=== PATIENT | male | born 1965 | race Caucasian/White ===

== ENCOUNTER 2021-09-28 09:07 | Inpatient (IN) ==
[2021-09-28 10:14] LABS: Basophils % 0.2 %; Hematocrit 53.4 % (37.5-50.1); Hemoglobin 17.6 g/dL (12.9-16.9); Immature Granulocytes % 0.6 % (0-4); Lymphocytes # 0.7 K/mcL (0.6-4.6); Lymphocytes % 8.2 %; Mean Corpuscular Hemoglobin 26.6 pg (28.0-33.3); Mean Corpuscular Volume 80.8 fL (83.0-100.0); Mean Platelet Volume 10.5 fL (9.4-12.4); Monocytes # 0.3 K/mcL (0.0-1.3); Monocytes % 3.2 %; Neutrophils # 7.7 K/mcL (1.6-8.9); Platelet Count 158 K/mcL (140-400); Red Blood Count 6.61 M/mcL (4.19-5.50); Segmented Neutrophils % 87.8 %; White Blood Count 8.8 K/mcL (4.3-11.1)
[2021-09-28 10:16] LABS: VBG HCO3 26 mEq/L (21-27); VBG PCO2 37 mmHg (41-51); VBG PH 7.45 pH Units (7.32-7.42); VBG PO2 78 mmHg (25-50)
[2021-09-28 10:22] LABS: INR 1.2; Prothrombin Time 13.7 Seconds (9.4-12.1)
[2021-09-28 10:25] LABS: Activated Partial Thrombo Time 30.6 Seconds (26.0-36.0)
[2021-09-28 10:40] LABS: Alanine Aminotransferase 49 Units/L (7-52); Albumin 3.8 g/dL (3.5-5.7); Albumin/Globulin Ratio 1.2 (1.1-2.2); Alkaline Phosphatase 66 Units/L (34-104); Aspartate Amino Transferase 55 Units/L (13-39); Bilirubin,Direct 0.2 mg/dL (0.0-0.2); Bilirubin,Indirect 0.5 mg/dL (0.0-1.0); Bilirubin,Total 0.7 mg/dL (0.3-1.0); Blood Urea Nitrogen 26 mg/dL (6-20); Calcium 8.9 mg/dL (8.6-10.3); Carbon Dioxide 25 mEq/L (23-29); Chloride 102 mEq/L (98-107); Globulin 3.2 g/dL (2.4-3.5); Glucose 168 mg/dL (70-105); Lipase 108 Units/L (11-82); Magnesium 1.6 mg/dL (1.6-2.6); Osmolality,Calculated 293 (280-300); Sodium 137 mEq/L (136-145); Troponin I 0.03 ng/mL (< 0.04)
[2021-09-28] MEDS ORDERED: Isovue-370 500 ML BOTTLE IVP ONE (11:04)
[2021-09-28] MEDS ORDERED: Ondansetron 4 MG/2 ML VIAL IVP ONE (11:16)
[2021-09-28 11:19] LABS: Ferritin > 1500 ng/mL (20-250)
[2021-09-28 12:20] LABS: BUN/Creatinine Ratio 22 (6-26); eGFR For African Americans > 60 (> 60); eGFR For Non-African Americans > 60 (> 60)
[2021-09-28 13:14] LABS: C-Reactive Protein 105 mg/L (Less than 10)
[2021-09-28] MEDS ORDERED: Naloxone 0.4 MG/ML INJ IVP PRN (14:25)
[2021-09-28] MEDS ORDERED: Colchicine 0.6 MG TABLET PO PRN (14:26)
[2021-09-28] MEDS ORDERED: Ipratropium 1 PUFF INHALER IH PRN (14:27)
[2021-09-28] MEDS: levoFLOXacin 750 MG/150 ML 750 MG/150 ML BAG IVPB SCH (18:16)
[2021-09-28] MEDS ORDERED: Dextrose Gel 15 GM/37.5 ML TUBE PO PRN ×2 (23:01)
[2021-09-28] MEDS ORDERED: *HR* Dextrose 50 % in Water (Syg) 50 ML SYRINGE IVP PRN (23:01)
[2021-09-28] MEDS ORDERED: D5% in Water 1,000 ML IVC PRN (23:01)
[2021-09-28] MEDS: Budesonide/Formoterol 160/4.5 1 PUFF INH IH SCH (23:34)
[2021-09-29] MEDS: Insulin LISPRO 300 UNITS/3 ML VIAL SUBQ SCH ×5 (00:21→21:28)
[2021-09-29] MEDS: Melatonin 3 MG TABLET PO SCH ×2 (00:23→21:29)
[2021-09-29 01:51] LABS: Basophils % 0.1 %; Hematocrit 53.7 % (37.5-50.1); Hemoglobin 17.2 g/dL (12.9-16.9); Immature Granulocytes % 0.5 % (0-4); Lymphocytes # 0.8 K/mcL (0.6-4.6); Lymphocytes % 10.7 %; Mean Corpuscular Hemoglobin 26.5 pg (28.0-33.3); Mean Corpuscular Volume 82.7 fL (83.0-100.0); Mean Platelet Volume 10.3 fL (9.4-12.4); Monocytes # 0.2 K/mcL (0.0-1.3); Monocytes % 2.3 %; Neutrophils # 6.3 K/mcL (1.6-8.9); Platelet Count 168 K/mcL (140-400); Red Blood Count 6.49 M/mcL (4.19-5.50); Red Cell Distribution Width 16.8 % (11.5-14.5); Segmented Neutrophils % 86.4 %; White Blood Count 7.3 K/mcL (4.3-11.1)
[2021-09-29 02:07] LABS: BUN/Creatinine Ratio 25 (6-26); Blood Urea Nitrogen 31 mg/dL (6-20); Carbon Dioxide 26 mEq/L (23-29); Chloride 100 mEq/L (98-107); Glucose 317 mg/dL (70-105); Osmolality,Calculated 293 (280-300); Potassium 4.5 mEq/L (3.5-5.1); Sodium 132 mEq/L (136-145); eGFR For African Americans > 60 (> 60); eGFR For Non-African Americans 60 (> 60)
[2021-09-29] MEDS: *HR* Enoxaparin 40 MG/0.4 ML SYRINGE SQ SCH (05:55)
[2021-09-29] MEDS: Dexamethasone Sodium Phos/PF 10 MG/ML VIAL IVP SCH (08:24)
[2021-09-29] MEDS: levoFLOXacin 750 MG/150 ML 750 MG/150 ML BAG IVPB SCH (08:25)
[2021-09-29] MEDS: Aspirin Enteric Coated 81 MG Tablet PO SCH (08:25)
[2021-09-29] MEDS: Budesonide/Formoterol 160/4.5 1 PUFF INH IH SCH ×2 (08:25→20:20)
[2021-09-29] MEDS: Furosemide 40 MG TABLET PO SCH (10:35)
[2021-09-29] MEDS: Tadalafil [Cialis] 5 MG Tablet PO SCH (10:36)
[2021-09-29] MEDS ORDERED: Remdesivir 200 MG in 0.9 % Sodium Chloride 100 ML IVPB ONE (12:30)
[2021-09-29] MEDS ORDERED: Ondansetron 4 MG/2 ML VIAL IVP PRN (23:04)
[2021-09-29] MEDS ORDERED: methylPREDNISolone 125 MG/2 ML VIAL IVP PRN (23:04)
[2021-09-29] MEDS ORDERED: EPINEPHrine 1 MG/ML VIAL IM PRN (23:04)
[2021-09-29] MEDS ORDERED: Tocilizumab 80 MG/4 ML MLS IVPB ONE (23:04)
[2021-09-29] MEDS ORDERED: Acetaminophen 325 MG TABLET PO PRN (23:04)
[2021-09-30] MEDS ORDERED: *HR* LORazepam 2 MG/ML VIAL IVP ONE (03:51)
[2021-09-30 04:40] LABS: Basophils % 0.2 %; Hematocrit 52.2 % (37.5-50.1); Immature Granulocytes % 0.5 % (0-4); Lymphocytes # 0.9 K/mcL (0.6-4.6); Lymphocytes % 7.4 %; Mean Corpuscular HGB Conc 32.6 g/dL (31.6-35.5); Mean Corpuscular Hemoglobin 26.3 pg (28.0-33.3); Mean Corpuscular Volume 80.7 fL (83.0-100.0); Mean Platelet Volume 10.3 fL (9.4-12.4); Monocytes # 0.3 K/mcL (0.0-1.3); Monocytes % 2.5 %; Neutrophils # 10.5 K/mcL (1.6-8.9); Platelet Count 201 K/mcL (140-400); Red Blood Count 6.47 M/mcL (4.19-5.50); Red Cell Distribution Width 16.3 % (11.5-14.5); Segmented Neutrophils % 89.4 %
[2021-09-30 04:41] LABS: White Blood Count 11.7 K/mcL (4.3-11.1)
[2021-09-30 04:58] LABS: Albumin 3.6 g/dL (3.5-5.7); Albumin/Globulin Ratio 1.2 (1.1-2.2); BUN/Creatinine Ratio 28 (6-26); Bilirubin,Direct 0.3 mg/dL (0.0-0.2); Bilirubin,Indirect 0.4 mg/dL (0.0-1.0); Bilirubin,Total 0.7 mg/dL (0.3-1.0); Blood Urea Nitrogen 26 mg/dL (6-20); Calcium 8.9 mg/dL (8.6-10.3); Carbon Dioxide 27 mEq/L (23-29); Chloride 106 mEq/L (98-107); Globulin 2.9 g/dL (2.4-3.5); Glucose 167 mg/dL (70-105); Osmolality,Calculated 291 (280-300); Potassium 4.2 mEq/L (3.5-5.1); Sodium 136 mEq/L (136-145); Total Protein 6.5 g/dL (6.4-8.9); eGFR For African Americans > 60 (> 60); eGFR For Non-African Americans > 60 (> 60)
[2021-09-30] MEDS: *HR* Enoxaparin 40 MG/0.4 ML SYRINGE SQ SCH (05:38)
[2021-09-30] MEDS: Budesonide/Formoterol 160/4.5 1 PUFF INH IH SCH ×2 (07:38→20:19)
[2021-09-30] MEDS: Dexamethasone Sodium Phos/PF 10 MG/ML VIAL IVP SCH (09:43)
[2021-09-30] MEDS: Aspirin Enteric Coated 81 MG Tablet PO SCH (09:43)
[2021-09-30] MEDS: Remdesivir 100 MG in 0.9 % Sodium Chloride 100 ML IVPB SCH (09:43)
[2021-09-30] MEDS: Furosemide 40 MG TABLET PO SCH (09:43)
[2021-09-30] MEDS: Insulin LISPRO 300 UNITS/3 ML VIAL SUBQ SCH ×4 (09:44→21:07)
[2021-09-30] MEDS: Tadalafil [Cialis] 5 MG Tablet PO SCH (09:46)
[2021-09-30] MEDS: Melatonin 3 MG TABLET PO SCH (21:07)
[2021-10-01] MEDS: *HR* Enoxaparin 40 MG/0.4 ML SYRINGE SQ SCH (06:04)
[2021-10-01] MEDS: Budesonide/Formoterol 160/4.5 1 PUFF INH IH SCH ×2 (07:39→20:03)
[2021-10-01] MEDS: Insulin LISPRO 300 UNITS/3 ML VIAL SUBQ SCH ×4 (08:30→21:35)
[2021-10-01] MEDS: Furosemide 40 MG TABLET PO SCH (09:04)
[2021-10-01] MEDS: Aspirin Enteric Coated 81 MG Tablet PO SCH (09:04)
[2021-10-01] MEDS: Dexamethasone Sodium Phos/PF 10 MG/ML VIAL IVP SCH (09:04)
[2021-10-01] MEDS: Tadalafil [Cialis] 5 MG Tablet PO SCH (11:12)
[2021-10-01] MEDS: Remdesivir 100 MG in 0.9 % Sodium Chloride 100 ML IVPB SCH (11:13)
[2021-10-01] MEDS: Melatonin 3 MG TABLET PO SCH (21:22)
[2021-10-02] MEDS: *HR* Enoxaparin 40 MG/0.4 ML SYRINGE SQ SCH (06:01)
[2021-10-02] MEDS: Budesonide/Formoterol 160/4.5 1 PUFF INH IH SCH ×2 (07:50→20:14)
[2021-10-02 08:04] LABS: Basophils % 0.2 %; Eosinophils % 0.2 %; Hematocrit 53.3 % (37.5-50.1); Hemoglobin 17.3 g/dL (12.9-16.9); Immature Granulocytes % 0.5 % (0-4); Lymphocytes # 1.4 K/mcL (0.6-4.6); Mean Corpuscular HGB Conc 32.5 g/dL (31.6-35.5); Mean Corpuscular Hemoglobin 26.5 pg (28.0-33.3); Mean Corpuscular Volume 81.6 fL (83.0-100.0); Mean Platelet Volume 10.4 fL (9.4-12.4); Monocytes # 0.4 K/mcL (0.0-1.3); Neutrophils # 7.3 K/mcL (1.6-8.9); Platelet Count 260 K/mcL (140-400); Red Blood Count 6.53 M/mcL (4.19-5.50); Segmented Neutrophils % 80.1 %; White Blood Count 9.2 K/mcL (4.3-11.1)
[2021-10-02 08:27] LABS: Alanine Aminotransferase 73 Units/L (7-52); Albumin 3.5 g/dL (3.5-5.7); Albumin/Globulin Ratio 1.2 (1.1-2.2); Alkaline Phosphatase 72 Units/L (34-104); Aspartate Amino Transferase 48 Units/L (13-39); BUN/Creatinine Ratio 28 (6-26); Bilirubin,Direct 0.2 mg/dL (0.0-0.2); Bilirubin,Indirect 0.7 mg/dL (0.0-1.0); Bilirubin,Total 0.9 mg/dL (0.3-1.0); Blood Urea Nitrogen 26 mg/dL (6-20); Calcium 9.1 mg/dL (8.6-10.3); Carbon Dioxide 30 mEq/L (23-29); Chloride 101 mEq/L (98-107); Globulin 2.9 g/dL (2.4-3.5); Glucose 134 mg/dL (70-105); Osmolality,Calculated 289 (280-300); Potassium 4.5 mEq/L (3.5-5.1); Sodium 136 mEq/L (136-145); Total Protein 6.4 g/dL (6.4-8.9); eGFR For African Americans > 60 (> 60); eGFR For Non-African Americans > 60 (> 60)
[2021-10-02] MEDS: Aspirin Enteric Coated 81 MG Tablet PO SCH (08:53)
[2021-10-02] MEDS: Furosemide 40 MG TABLET PO SCH (08:53)
[2021-10-02] MEDS: Dexamethasone Sodium Phos/PF 10 MG/ML VIAL IVP SCH (09:00)
[2021-10-02] MEDS: Tadalafil [Cialis] 5 MG Tablet PO SCH (09:03)
[2021-10-02] MEDS: Insulin LISPRO 300 UNITS/3 ML VIAL SUBQ SCH ×4 (09:03→20:24)
[2021-10-02] MEDS ORDERED: Benzonatate 100 MG CAPSULE PO PRN (10:53)
[2021-10-02] MEDS: Remdesivir 100 MG in 0.9 % Sodium Chloride 100 ML IVPB SCH (11:32)
[2021-10-02] MEDS: Melatonin 3 MG TABLET PO SCH (20:23)
[2021-10-03] MEDS: *HR* Enoxaparin 40 MG/0.4 ML SYRINGE SQ SCH (05:35)
[2021-10-03 07:13] LABS: Albumin 3.5 g/dL (3.5-5.7); Albumin/Globulin Ratio 1.3 (1.1-2.2); Bilirubin,Direct 0.2 mg/dL (0.0-0.2); Bilirubin,Indirect 0.6 mg/dL (0.0-1.0); Bilirubin,Total 0.8 mg/dL (0.3-1.0); Globulin 2.8 g/dL (2.4-3.5); Total Protein 6.3 g/dL (6.4-8.9)
[2021-10-03 07:26] VITALS: TEMP 98.7
[2021-10-03] MEDS: Budesonide/Formoterol 160/4.5 1 PUFF INH IH SCH (07:53)
[2021-10-03] MEDS: Insulin LISPRO 300 UNITS/3 ML VIAL SUBQ SCH ×2 (08:06→12:15)
[2021-10-03] MEDS: Furosemide 40 MG TABLET PO SCH (08:07)
[2021-10-03] MEDS: Aspirin Enteric Coated 81 MG Tablet PO SCH (08:07)
[2021-10-03] MEDS ORDERED: Dexamethasone Sodium Phos/PF 10 MG/ML VIAL IVP SCH (09:00)
[2021-10-03] MEDS: Remdesivir 100 MG in 0.9 % Sodium Chloride 100 ML IVPB SCH (11:35)
[2021-10-03] MEDS: Tadalafil [Cialis] 5 MG Tablet PO SCH (11:44)
[2021-10-03 14:49] VITALS: BP 147/88; PULSE 78; O2SAT 93
== END 2021-10-03 15:36 | disposition home or self-care (01) | DRG 177 ==
LOC: EMEROOARM 09:07 → SUATTDRO 20:02 → 3NENU 20:02
PROVIDERS: ADMIT Student in an Organized Health Care Education/Training Program; ATTEND Internal Medicine